=== PATIENT | male | born 1995 | race Caucasian/White ===

== ENCOUNTER 2019-10-22 17:03 | Emergency (ER) | payer OTHER ==
[~2019-10-22] VITALS: Ht 182.9 cm; Wt 70.3 kg
[~2019-10-22 17:03] MED LIST: NOHOMEMEDICATIONS
[2019-10-22] MEDS ORDERED: BACTRIM DS TAB1 EACH PO (17:17)
[2019-10-22] MEDS ORDERED: KEFLEX500 M1 PO (17:17)
[2019-10-22 17:24] VITALS: BP 111/73
== END 2019-10-22 17:25 | disposition home or self-care (01) ==
LOC: M.ERS 17:03
DX: S60.561A Insect bite (nonvenomous) of right hand, initial encounter (principal); L03.113 Cellulitis of right upper limb; W57.XXXA Bitten or stung by nonvenomous insect and other nonvenomous arthropods, initial encounter; Y93.89 Activity, other specified; Y92.89 Other specified places as the place of occurrence of the external cause; Y99.8 Other external cause status

== ENCOUNTER 2019-11-07 10:38 | Emergency (ER) | payer OTHER ==
[~2019-11-07] VITALS: Ht 182.9 cm; Wt 70.3 kg
[~2019-11-07 10:38] MED LIST changes: +BACTRIM DS TAB1 EACH PO; +KEFLEX500 M1 PO
[2019-11-07] MEDS ORDERED: MEDROLDOSEPACK PO (11:39)
[2019-11-07] MEDS ORDERED: DOXYCYCLINE 10100 MG PO (11:39)
[2019-11-07 11:47] VITALS: BP 138/65
== END 2019-11-07 11:49 | disposition home or self-care (01) ==
LOC: M.ERS 10:38
DX: H02.844 Edema of left upper eyelid (principal); H02.845 Edema of left lower eyelid; T78.40XA Allergy, unspecified, initial encounter; X58.XXXA Exposure to other specified factors, initial encounter